=== PATIENT | male | born 1985 | race African-American/Black ===

== ENCOUNTER 2017-08-02 11:31 | Emergency (ER) | payer OTHER ==
[~2017-08-02] VITALS: Ht 170.2 cm; Wt 88.5 kg
[2017-08-02 11:35] VITALS: BP 130/76
--- NOTE | 2017-08-02 11:50 | NUR ---
31/M BIB SELF C/O SOB, SEEN IN AN URGENT CARE, MID CHEST PAIN,WHILE LYING ON AND OFF SINCE TUESDAY , DENIES N/V/D; SKIN IS PINK/WARM/DRY; AAOX4 WITH EVEN AND STEADY GAIT; LUNGS CLEAR BL; HR EVEN AND REGULAR; PT DENIES ANY FEVER OR COUGH AT THIS TIME; PATIENT STATES PAIN OF 10/10 AT THIS TIME; PATIENT POSITIONED FOR COMFORT; HOB ELEVATED; BEDRAILS UP X2; BED DOWN. ER MD MADE AWARE OF PT STATUS.
[2017-08-02] MEDS ORDERED: KETOROLAC 60 MG/2 ML VIAL IM ONE (12:25)
[2017-08-02 12:54] VITALS: BP 130/76
--- NOTE | 2017-08-02 12:57 | NUR ---
Patient discharged with v/s stable. Written and verbal after care instructions given and explained. Patient verbalized understanding. Ambulatory with steady gait. All questions addressed prior to discharge. Advised to follow up with PMD.
== END 2017-08-02 12:57 | disposition home or self-care (01) ==
LOC: MED 11:31
DX: R07.89 Other chest pain (principal); F17.210 Nicotine dependence, cigarettes, uncomplicated
CPT/HCPCS: 93005; 96372; 99283; J1885